=== PATIENT | female | born 1965 | race Caucasian/White ===

== ENCOUNTER 2020-09-19 23:13 | Emergency (ER) | payer BC, SELFPAY ==
--- NOTE | ~2020-09-19 | XR_ITS ---
XR chest 1V portable DATE: 09/19/2020 23:40 INDICATION: Sternal chest pain for 40 minutes TECHNIQUE: Portable AP chest on 09/19/2020 at 2342 hours COMPARISON: None FINDINGS: Normal heart size. No hilar or mediastinal enlargement. No pulmonary infiltrate or consolid ation, pleural effusion or pulmonary vascular congestion or pneumothorax. Osteopenia. IMPRESSION: No active cardiopulmonary disease Reviewed, dictated and finalized at location A.
[2020-09-19 23:19] VITALS: BP 130/76; PULSE 88; RESP 18; TEMP 36.9; O2SAT 96
--- NOTE | 2020-09-19 23:25 | ECG_ITS ---
Measurements Intervals [place] Rate: 84 P: 58 MA: 138 QRS: 35 QRSD: 82 T: 52 QT: 346 QTc: 411 Interpretive Statements SINUS RHYTHM BASELINE ARTIFACT- II, III, AVF, V2-V6 NORMAL ECG Electronically Signed On 09-20-2020 6:27:11 CDT by Dennis Juarez D.O.
[2020-09-19 23:43] LABS: Basophils Absolute Auto 0.1 K/mm3 (0.0-0.1); Basophils Percent Auto 0.4 % (0.2-1.2); Eosinophils Absolute Auto 0.2 K/mm3 (0-0.3); Eosinophils Percent Auto 1.2 % (0-4.4); Hematocrit 41.7 % (37.0-47.0); Immature Granulocyte Absolute 0.12 K/mm3 (0.00-0.031); Immature Granulocyte Percent A 0.9 % (0-0.5); Lymphocytes Absolute Auto 5.69 K/mm3 (0.9-3.2); Lymphocytes Percent Auto 42.2 % (18.3-44.2); Mean Corpuscular HGB Conc 33.6 g/dl (32-36); Mean Corpuscular Hemoglobin 32.4 pg (26-34); Mean Corpuscular Volume 96.5 fl (80-100); Mean Platelet Volume 9.6 fl (7.4-10.4); Monocytes Absolute Auto 0.8 K/mm3 (0.1-0.6); Monocytes Percent Auto 6.1 % (2.6-8.5); Neutrophils Absolute Auto 6.7 K/mm3 (1.3-6.7); Neutrophils Percent Auto 49.2 % (45.5-73.1); Platelet Count Result 254 k/mm3 (150-375); Red Blood Count 4.32 M/mm3 (4.2-5.4); Red Cell Distribution Width 13.6 % (11.5-14.5); White Blood Count 13.5 K/mm3 (4.5-10.0)
[2020-09-19 23:53] LABS: INR 0.9; Prothrombin Time 12.9 Seconds (11.1-14.7)
[2020-09-19] MEDS: SODIUM CHLORIDE 0.9% IV 1,000 ML 999 ML IV CONT (23:54)
[2020-09-19] MEDS: ASPIRIN 81 MG CHEWABLE TABLET 324 MG PO (23:55)
[2020-09-19 23:56] LABS: Anion Gap 7 mmol/L (8-16); Blood Urea Nitrogen 12 mg/dL (7-17); Calcium 9.8 mg/dL (8.4-10.2); Carbon Dioxide 25 mmol/L (22-30); Chloride 107 mmol/L (98-107); Estimated CRCL calculation 76 ml/min; Estimated Glomerular Filt Rate > 60; Glucose 148 mg/dL (65-105); Potassium 3.7 mmol/L (3.4-5.0); Sodium 139 mmol/L (137-145)
[2020-09-20 00:07] LABS: Alanine Aminotransferase 39 U/L (4-35); Albumin Level 4.1 g/dL (3.5-5.1); Alkaline Phosphatase 91 U/L (38-126); Aspartate Amino Transferase 38 U/L (14-36); Bilirubin,Total 0.6 mg/dL (0.2-1.3); Lipase 102 U/L (23-300)
[2020-09-20 00:08] LABS: Troponin I < 0.012 ng/mL (0.000-0.034)
[2020-09-20] MEDS: KETOROLAC 30 MG/ML VIAL (*BKC) IV PUSH (00:41)
[2020-09-20 02:30] VITALS: BP 106/54; PULSE 78; RESP 22; O2SAT 96
[2020-09-20] MEDS: BELLADONNA ALK/PHENOB ELIX 10 ML, MAG HYDROX/ALUMINUM HYD/SIMETH 30 ML, LIDOCAINE HCL 2... PO (02:32)
[2020-09-20 02:46] LABS: Troponin I < 0.012 ng/mL (0.000-0.034)
--- NOTE | 2020-09-20 02:54 | ED.CHESTPAIN ---
HPI - Chest Pain General Chief Complaint: Chest Pain Stated Complaint: chest pain, dizziness Time Seen by Provider: 09/19/20 23:25 History of Present Illness HPI narrative: Patient is a 55-year-old female who presents ER with chest pain. Began in her lower chest moved into her mid chest in the right chest prior breast. Occurred suddenly upon arrival to a family member's house this evening after driving from [place]. Denies aggravating or alleviating factors. No nausea or vomiting. No sweats or shortness of breath. Patient has history of previous coronary disease with stent placement couple years ago. This was done in at [place] in [facility]. Review of Systems Review of Systems: All systems reviewed & are unremarkable except as noted in HPI and below Constitutional: Constitutional: Denies chills, Denies fever(s) and Denies weakness ENT: Denies nasal congestion and Denies sore throat Cardiovascular: Cardiovascular: Reports chest pain, Denies rapid heart rate and Denies radiating jaw, neck or arm pain Respiratory: Respiratory: Denies cough and Denies dyspnea Gastrointestinal: Gastrointestinal: Reports abdominal pain, Denies diarrhea, Denies nausea and Denies vomiting PMFSH Past Medical History Medical History (Updated 09/20/20 @ 03:22 by Bello Abel MD) Coronary artery disease Hypertension Surgical History Surgical History (Updated 09/20/20 @ 03:22 by Bello Abel MD) History of cholecystectomy History of percutaneous coronary intervention S/P insertion of iliac artery stent Social History Social History (Updated 09/20/20 @ 02:54 by Bello Abel MD) Substance use: never Exam Narrative: Exam Narrative: GENERAL: Well-appearing, well-nourished, and in no acute distress. HEAD: Normocephalic, atraumatic. ENT: Mucous membranes moist CHEST: Clear to auscultation. No respiratory distress. Tender palpation right anterior chest wall with light palpation. HEART: Regular rate and rhythm. Normal peripheral pulses. ABDOMEN: Soft, tender palpation in the epigastrium without guarding, nondistended. EXTREMITIES: Normal range of motion. No edema. SKIN: Warm, dry, no rash. NEURO: Alert and oriented x3. PSYCH: Normal mood and affect. Course Course Emergency Course: Patient reports she is starting to have cramps in her shoulder and her neck worsening and she starts to massage them. Symptoms felt to be musculoskeletal in nature. Discharge home with anti-inflammatories muscle relaxers. Troponin negative x2. Vital Signs Vital signs: Vital Signs Temperature 98.5 F 09/19/20 23:19 Pulse Rate 88 09/19/20 23:19 Respiratory Rate 18 09/19/20 23:19 Blood Pressure 130/76 09/19/20 23:19 Pulse Oximetry 96 09/19/20 23:19 Temperature 98.5 F 09/19/20 23:19 Pulse Rate 78 09/20/20 02:30 Respiratory Rate 22 H 09/20/20 02:30 Blood Pressure 106/54 L 09/20/20 02:30 Pulse Oximetry 96 09/20/20 02:30 MDM - Chest Pain Lab Data Result diagrams: 09/19/20 23:35 09/19/20 23:35 Labs: Lab Results 09/19/20 09/19/20 09/19/20 Range/Units 23:35 23:35 23:35 WBC 13.5 H (4.5-10.0) K/mm3 RBC 4.32 (4.2-5.4) M/mm3 Hgb 14.0 (12.0-15.0) g/dL Hct 41.7 (37.0-47.0) % MCV 96.5 (80-100) fl MCH 32.4 (26-34) pg MCHC 33.6 (32-36) g/dl RDW 13.6 (11.5-14.5) % Plt Count 254 (150-375) k/mm3 MPV 9.6 (7.4-10.4) fl Immature Gran % (Auto) 0.9 H (0-0.5) % Neut % (Auto) 49.2 (45.5-73.1) % Lymph % (Auto) 42.2 (18.3-44.2) % [place] % (Auto) 6.1 (2.6-8.5) % Eos % (Auto) 1.2 (0-4.4) % Baso % (Auto) 0.4 (0.2-1.2) % Lymph # (Auto) 5.69 H (0.9-3.2) K/mm3 [place] # (Auto) 0.8 H (0.1-0.6) K/mm3 Eos # (Auto) 0.2 (0-0.3) K/mm3 Baso # (Auto) 0.1 (0.0-0.1) K/mm3 Abs Immat Gran (auto) 0.12 H (0.00-0.031) K/mm3 Absolute Neuts (auto) 6.7 (1.3-6.7) K/mm3 Absolute Nucleat
[2020-09-20 04:19] VITALS: BP 116/65; PULSE 73; RESP 18; O2SAT 98
== END 2020-09-20 04:21 | disposition home or self-care (01) ==
PROVIDERS: Emergency Provider Emergency Medicine
DX: R25.2 Cramp and spasm (principal); I25.10 Atherosclerotic heart disease of native coronary artery without angina pectoris; I10 Essential (primary) hypertension; Z95.5 Presence of coronary angioplasty implant and graft
CPT/HCPCS: 36415; 71045; 80048; 80076; 83690; 84484; 85025; 85610; 85730; 93005; 96361; 96374; 99284; A9270; J1885; J7030